=== PATIENT | female | born 1965 | race Caucasian/White ===

== ENCOUNTER 2019-11-27 11:45 | Outpatient (REF) | payer SELFPAY ==
--- NOTE | 2019-11-27 10:00 | PAPFT_PTH ---
PATIENT: Stacy Bergeron LOC: [facility] U#:[id number] AGE/SX: 54/F ROOM: RE11/27/[address]: [address] : 1965 BED: DIS: 11/27/2019 SPEC #: [id number] RECD: 11/27/19 12:55 STATUS: CYNTHIA RETigist #: [id number] MANAS: 11/27/19 10:[address]: Catherine Vciente DEPT: [facility] Cytology RECD BY: Abby Yepez Tissues: 1 - CX/ENDOCX FOR PAP SMEARS Procedures: PAP THIN PREP/[facility] Screening HPV DNA PROBE Comments: [id number]
== END 2019-11-27 12:05 ==
LOC: LBN 11:45
PROVIDERS: PCP Nurse Practitioner Family; Visit Provider Nurse Practitioner Family
DX: Z12.4 Encounter for screening for malignant neoplasm of cervix (principal); Z11.51 Encounter for screening for human papillomavirus (HPV)
CPT/HCPCS: 88142; 87624

== ENCOUNTER 2021-01-27 17:25 | Outpatient (REF) | payer SELFPAY ==
[2021-01-29 15:28] LABS: Chlamydia Result Negative (Negative); GC Result Negative (Negative)
== END 2021-01-27 17:26 | disposition home or self-care (01) ==
LOC: LBN 17:25
PROVIDERS: PCP Nurse Practitioner Family; Visit Provider Nurse Practitioner Family
DX: Z11.3 Encounter for screening for infections with a predominantly sexual mode of transmission (principal)
CPT/HCPCS: 87491; 87591

== ENCOUNTER 2023-08-03 17:48 | Outpatient (REF) | payer SELFPAY ==
--- NOTE | 2023-08-03 13:20 | PAPFT_PTH ---
PATIENT: Stacy Bergeron LOC: [facility] U#:[id number] AGE/SX: 58/F ROOM: RE08/03/[address]: Eliza Jennings MD : 1965 BED: DIS: 08/03/2023 SPEC #: [id number] RECD: 08/03/23 18:23 STATUS: CYNTHIA REQ #: [id number] MANAS: 08/03/23 13:[address]: Eliza Jennings DEPT: [facility] Cytology RECD BY: Abby Yepez ENTERED: 08/03/23 18:23 SP TYPE: PAPFT OT DR: Unknown,Unknown Tissues: 1 - CX/ENDOCX FOR PAP SMEARS Procedures: PAP THIN PREP/[facility] Screening HPV DNA PROBE Comments: [id number]
== END 2023-08-03 17:49 | disposition home or self-care (01) ==
LOC: LBN 17:48
PROVIDERS: Visit Provider Obstetrics & Gynecology
DX: Z12.4 Encounter for screening for malignant neoplasm of cervix (principal); Z11.51 Encounter for screening for human papillomavirus (HPV)
CPT/HCPCS: 88142; 87624